=== PATIENT | male | born 1950 | race Caucasian/White ===

== ENCOUNTER → 2016-11-29 | Outpatient (CLI) | payer OTHER, MEDICARE ==
[2011-02-04 10:27] VITALS: BP 165/82
[2016-11-29 10:43] LABS: HEMOGLOBIN A1C 7.27 % (4.2-6.0); MEAN BLOOD GLUCOSE (CALC) 156.091 mg/dL
[2016-11-29 10:44] LABS: CREATININE, URINE 50.8 MG/DL (15-500)
[2016-11-29 10:52] LABS: BILIRUBIN,TOTAL 0.7 mg/dL (0.3-1.2); BUN/CREATININE RATIO 12.22 (6-20); CALCIUM 9.9 mg/dL (8.7-10.7); CREATININE 1.8 mg/dL (0.70-1.50); LDL CHOLESTEROL,CALCULATED 69.2 mg/dL; POTASSIUM 4.4 meq/L (3.8-5.2); TOTAL PROTEIN 7.6 g/dL (6.1-8.0)
== END ==
LOC: LAB 10:08
PROVIDERS: ATTEND Internal Medicine
DX: E11.9 Type 2 diabetes mellitus without complications (principal); E78.5 Hyperlipidemia, unspecified; N40.0 Benign prostatic hyperplasia without lower urinary tract symptoms; Z12.5 Encounter for screening for malignant neoplasm of prostate; F17.220 Nicotine dependence, chewing tobacco, uncomplicated
CPT/HCPCS: 36415; 80053; 80061; 82043; 82550; 83036; G0103

== ENCOUNTER → 2016-12-02 | Outpatient (CLI) | payer OTHER, MEDICARE ==
[2011-02-04 10:27] VITALS: BP 165/82
== END ==
LOC: MMPC 11:11
PROVIDERS: ATTEND Nurse Practitioner
DX: R55 Syncope and collapse (principal); E78.5 Hyperlipidemia, unspecified; N52.9 Male erectile dysfunction, unspecified; N18.3 Chronic kidney disease, stage 3 (moderate); G47.34 Idiopathic sleep related nonobstructive alveolar hypoventilation; E11.9 Type 2 diabetes mellitus without complications; N40.0 Benign prostatic hyperplasia without lower urinary tract symptoms
CPT/HCPCS: 99214

== ENCOUNTER → 2017-02-23 | Outpatient (CLI) | payer OTHER, MEDICARE ==
[2011-02-04 10:27] VITALS: BP 165/82
[2017-02-23 10:59] LABS: BASOPHILS # (AUTO) 0.07 10*3/UL; EOSINOPHILS # (AUTO) 0.26 10*3/UL; EOSINOPHILS % (AUTO) 3.5 % (0-8); HEMATOCRIT 53.3 % (42.0-52.0); LYMPHOCYTES # (AUTO) 1.67 10*3/uL; MEAN CORPUSCULAR HEMOGLOBIN 30.7 PG (27-31); MEAN CORPUSCULAR HGB CONC 33.8 g/dL (33-37); MEAN CORPUSCULAR VOLUME 90.8 FL (80-90); MEAN PLATELET VOLUME 11.1 FL (7.4-12.2); MONOCYTES # (AUTO) 0.49 10*3/UL (0.3-0.8); MONOCYTES % (AUTO) 6.7 % (5-15); NEUTROPHILS # (AUTO) 4.85 10*3/UL; NEUTROPHILS % (AUTO) 65.8 % (50-80); RED BLOOD COUNT 5.87 10^6/uL (4.70-6.10)
[2017-02-23 11:02] LABS: PLATELET MORPHOLOGY COMMENT NORMAL MORPHOLOGY (NORM); RBC MORPHOLOGY COMMENT NORMAL MORPHOLOGY (NORM); WBC MORPHOLOGY COMMENT NORMAL MORPHOLOGY (NORM)
[2017-02-23 11:15] LABS: BUN/CREATININE RATIO 11.81 (6-20); CALCIUM 9.9 mg/dL (8.7-10.7); CHOL/HDL RATIO 4.09 RATIO (0-4.0); LDL CHOLESTEROL,CALCULATED 59.4 mg/dL; SERUM ALBUMIN 4.2 g/dL (3.5-4.8)
[2017-02-23 11:18] LABS: HEMOGLOBIN A1C 7.31 % (4.2-6.0)
[2017-02-23 11:36] LABS: CREATININE, URINE 85.2 MG/DL (15-500)
== END ==
LOC: LAB 10:28
PROVIDERS: ATTEND Internal Medicine
DX: E11.9 Type 2 diabetes mellitus without complications (principal); D75.1 Secondary polycythemia; E78.5 Hyperlipidemia, unspecified; M80.88XA Other osteoporosis with current pathological fracture, vertebra(e), initial encounter for fracture; N18.3 Chronic kidney disease, stage 3 (moderate); N40.0 Benign prostatic hyperplasia without lower urinary tract symptoms
CPT/HCPCS: 36415; 80053; 80061; 82043; 82550; 83036; 85025

== ENCOUNTER → 2017-03-03 | Outpatient (CLI) | payer OTHER, MEDICARE ==
[2011-02-04 10:27] VITALS: BP 165/82
== END ==
LOC: MMPC 11:11
PROVIDERS: ATTEND Internal Medicine
DX: E11.9 Type 2 diabetes mellitus without complications (principal); E78.5 Hyperlipidemia, unspecified; N52.9 Male erectile dysfunction, unspecified; N18.3 Chronic kidney disease, stage 3 (moderate); M80.88XD Other osteoporosis with current pathological fracture, vertebra(e), subsequent encounter for fracture with routine healing
CPT/HCPCS: 99214; G0463

== ENCOUNTER → 2017-05-30 | Outpatient (CLI) | payer OTHER, MEDICARE ==
[2011-02-04 10:27] VITALS: BP 165/82
[2017-05-30 08:24] LABS: BASOPHILS # (AUTO) 0.15 10*3/UL; BASOPHILS % (AUTO) 2.2 % (0-1); HEMATOCRIT 50.8 % (42.0-52.0); HEMOGLOBIN 17.3 g/dL (14.0-18.0); LYMPHOCYTES # (AUTO) 1.88 10*3/uL; MEAN CORPUSCULAR HEMOGLOBIN 30.9 PG (27-31); MEAN CORPUSCULAR HGB CONC 34.1 g/dL (33-37); MEAN CORPUSCULAR VOLUME 90.9 FL (80-90); MEAN PLATELET VOLUME 11.8 FL (7.4-12.2); MONOCYTES % (AUTO) 7.4 % (5-15); NEUTROPHILS # (AUTO) 3.77 10*3/UL; NEUTROPHILS % (AUTO) 56.1 % (50-80); RED BLOOD COUNT 5.59 10^6/uL (4.70-6.10)
[2017-05-30 08:38] LABS: BUN/CREATININE RATIO 12.4 (6-20); CALCIUM 10.1 mg/dL (8.7-10.7); CHOL/HDL RATIO 4.44 RATIO (0-4.0); LDL CHOLESTEROL,CALCULATED 75.4 mg/dL; SERUM ALBUMIN 4.3 g/dL (3.5-4.8)
[2017-05-30 09:31] LABS: PLATELET MORPHOLOGY COMMENT NORMAL MORPHOLOGY (NORM); RBC MORPHOLOGY COMMENT NORMAL MORPHOLOGY (NORM); WBC MORPHOLOGY COMMENT NORMAL MORPHOLOGY (NORM)
[2017-05-30 10:05] LABS: CREATININE, URINE 33.8 MG/DL (15-500)
[2017-05-30 11:48] LABS: HEMOGLOBIN A1C 6.73 % (4.2-6.0)
== END ==
LOC: LAB 08:10
PROVIDERS: ATTEND Internal Medicine
DX: E11.9 Type 2 diabetes mellitus without complications (principal); E78.5 Hyperlipidemia, unspecified; N18.3 Chronic kidney disease, stage 3 (moderate); Z72.0 Tobacco use
CPT/HCPCS: 36415; 80053; 80061; 82043; 82306; 82550; 83036; 83970; 84100; 85025